=== PATIENT | male | born 1940 | race Hispanic/Latino ===

== ENCOUNTER 2016-10-21 19:23 | Observation (INO) | payer MEDICARE, BC ==
[2016-10-21 19:24] VITALS: BMI 19.5
[2016-10-21] MEDS ORDERED: Glucagon Recombinant 1 mg Inj IM STA (19:35)
[2016-10-21] MEDS ORDERED: Glucagon Recombinant 1 mg Inj ONE (19:35)
[2016-10-21 20:51] LABS: BASO # 0.1 K/uL (0.0-0.2); BASO % 0.7 % (0.0-2.0); EOS # 0.1 K/uL (0.0-0.7); EOS % 1.4 % (0.0-4.0); HEMATOCRIT 38.6 % (35.0-51.0); LYMPH # 0.5 K/uL (1.0-4.3); LYMPH % 7.2 % (20.0-40.0); MEAN CORPUSCULAR HGB CONC 34.3 g/dL (33.0-37.0); MEAN PLATELET VOLUME 8.6 fL (7.2-11.7); MONO # 0.5 K/uL (0.0-0.8); MONO % 6.2 % (0.0-10.0); NRBC % 0.1 % (0.0-2.0); PLATELET COUNT 307 K/uL (130-400); RED CELL DISTRIBUTION WIDTH 14.3 % (11.5-14.5); WHITE BLOOD COUNT 7.6 K/uL (4.8-10.8)
[2016-10-21 21:02] LABS: CHLORIDE 100 mmol/L (98-107)
[2016-10-21 21:03] LABS: POTASSIUM 2.9 mmol/L (3.6-5.2); SODIUM 139 mmol/L (132-148)
[2016-10-21 21:05] LABS: ALB/GLOB RATIO 1.3 (1.0-2.1); ALKALINE PHOSPHATASE 84 U/L (38-126); ALT/SGPT 26 U/L (21-72); AST/SGOT 57 U/L (17-59); BILIRUBIN,TOTAL 0.6 mg/dL (0.2-1.3); BLOOD UREA NITROGEN 20 mg/dL (9-20); CARBON DIOXIDE 25 mmol/L (22-30); GFR AFRICAN-AMERICAN > 60; TOTAL PROTEIN 7.4 g/dL (6.3-8.3)
[2016-10-21 21:06] LABS: CALCIUM 9.3 mg/dl (8.6-10.4); GLUCOSE,RANDOM 121 mg/dL (75-110)
--- NOTE | 2016-10-21 21:20 | C.PDOC ---
History Of Present Illness Patient presents to the ER after taking insulin without checking blood sugar or eating. Patient was found diaphoretic and with an accucheck of 48. Patient was given 16oz of juice and on arrival to the ER still had an accucheck <69; he was given 1ml of glucagon on arrival. Denies fever, chill, nausea or vomiting. Time Seen by Provider: 10/21/16 21:19 Chief Complaint (Nursing): Altered Mental Status History Per: Patient History/Exam Limitations: None Onset/Duration Of Symptoms: Hrs Onset Of Symptoms: Cannot Confirm Onset Current Symptoms Are (Timing): Still Present Usual Baseline: Unknown Exacerbating Factor(s): Diabetic Use Of Anticoag/Antiplatelets: Unknown Speech Is: Normal Severity: None Pain Scale Rating Of: 0 Recent travel outside of the [place]: No Associated Symptoms: Sweating. denies: Fever, Chills, Vomiting, Other (Nausea) Past Medical History Reviewed: Historical Data, Nursing Documentation, Vital Signs Vital Signs: Last Vital Signs Temp 97.4 F L 10/21/16 21:54 Pulse 62 10/22/16 01:15 Resp 16 10/22/16 01:15 BP 166/82 H 10/22/16 01:15 Pulse Ox 96 10/22/16 01:15 - Medical History PMH: HTN - [facility] Procedures CLOSED ENDOSCOPIC BIOPSY OF LARGE INTESTINE (01/30/12) COLONOSCOPY (05/30/97) ENDOSC POLYPECTOMY OF LG INTEST (01/08/07) Family History: States: No Known Family Hx - Social History Hx Alcohol Use: Yes Hx Substance Use: No Review Of Systems Constitutional: Positive for: Sweats. Negative for: Fever, Chills Gastrointestinal: Negative for: Nausea, Vomiting Physical Exam - Physical Exam Appears: Non-toxic, Other (AAOx3) Skin: Warm, Dry Oral Mucosa: Moist Chest: Symmetrical, No Tenderness Cardiovascular: Rhythm Regular, No Murmur Respiratory: No Rales, No Rhonchi, No Wheezing Gastrointestinal/Abdominal: Soft, No Tenderness Neurological/Psych: Oriented x3 ED Course And Treatment - Laboratory Results Result Diagrams: 10/21/16 20:37 10/21/16 20:37 ECG: Interpreted By Me, Viewed By Me ECG Rhythm: Sinus Bradycardia (48), Nonspecific Changes O2 Sat by Pulse Oximetry: 99 (Room air) Pulse Ox Interpretation: Normal Progress Note: EKG, blood work and urinalysis ordered. Glucagon and potassium administered. Reevaluation Time: 05:17 Reassessment Condition: Improved ED OBSERVATION Discharge: Yes Date of observation admission: 10/21/16 Time of observation admission: 23:51 - Observation admission statement Patient is being placed in observation because:: hypoglycemia - Goals of Observation Goals of observation are:: normoglycemia - Progress Note Progress Note: 10/21/16 23:51 vitals stable, no complaints Disposition Counseled Patient/Family Regarding: Studies Performed, Diagnosis, Need For Followup - Disposition Disposition: HOME/ ROUTINE Disposition Time: 21:20 Condition: FAIR - Clinical Impression Clinical Impression: Hypoglycemia - Scribe Statement The provider has reviewed the documentation as recorded by the Scribleoncio Koch All medical record entries made by the Mohanibleoncio were at my direction and personally dictated by me. I have reviewed the chart and agree that the record accurately reflects my personal performance of the history, physical exam, medical decision making, and the department course for this patient. I have also personally directed, reviewed, and agree with the discharge instructions and disposition.
[2016-10-21 21:44] LABS: EOSINOPHIL 1 % (0-4); NEUTROPHIL 87 % (50-75); TOTAL CELLS COUNTED 100
[2016-10-22 01:15] VITALS: RESP 16
[2016-10-22 05:29] VITALS: BP 159/78; PULSE 66; TEMP 98.1; O2SAT 98
--- NOTE | 2016-10-22 09:49 | CARD ---
APPROVED REPORT EKG Measurement Heart [id number] <Conclusion> Sinus bradycardia Poor R wave progression Borderlinel ECG
== END 2016-10-22 05:18 | disposition home or self-care (01) ==
LOC: C.ER 19:23 → C.9E 23:12 → C.9OBSV 23:12
PROVIDERS: ADMIT Emergency Medicine; ATTEND Emergency Medicine
DX: E11.649 Type 2 diabetes mellitus with hypoglycemia without coma (principal); Z79.4 Long term (current) use of insulin; I10 Essential (primary) hypertension
CPT/HCPCS: 80053; 82948; 85025; 85610; 85730; 93005; 96372; G0378; J1610; J3480

== ENCOUNTER 2017-06-30 12:25 | Observation (INO) | payer MEDICARE, BC ==
[2017-06-30 12:26] VITALS: BMI 19.5
[2017-06-30 13:10] LABS: VENOUS BLOOD GAS BASE EXCESS 5.7 mmol/L (0.0-2.0); VENOUS BLOOD GAS PCO2 64 mmHg (40-60); VENOUS BLOOD GAS PO2 11 mm/Hg (30-55); VENOUS BLOOD PH 7.33 (7.32-7.43)
[2017-06-30] MEDS ORDERED: Sodium Chloride 0.9% 500 ML IV ONE ×2 (13:10→15:00)
[2017-06-30] MEDS ORDERED: Dextrose 50% SYRINGE Inj (50 ml) IVP STA (13:22)
[2017-06-30 13:24] LABS: BASO # 0.1 K/uL (0.0-0.2); EOS % 0.2 % (0.0-4.0); HEMOGLOBIN 11.8 g/dL (12.0-18.0); LYMPH # 0.1 K/uL (1.0-4.3); LYMPH % 0.6 % (20.0-40.0); MEAN CELL VOLUME 100.9 fL (80.0-94.0); MEAN CORPUSCULAR HEMOGLOBIN 34.3 pg (27.0-31.0); MEAN PLATELET VOLUME 8.9 fL (7.2-11.7); MONO # 0.5 K/uL (0.0-0.8); MONO % 3.5 % (0.0-10.0); NEUT # 13.6 K/uL (1.8-7.0); NEUT % 94.7 % (50.0-75.0); PLATELET COUNT 328 K/uL (130-400); RBC 3.44 Mil/uL (4.40-5.90); RED CELL DISTRIBUTION WIDTH 14.7 % (11.5-14.5); WHITE BLOOD COUNT 14.4 K/uL (4.8-10.8)
[2017-06-30] MEDS ORDERED: Dextrose 50% VIAL Inj (50 ml) IV ONE (13:27)
[2017-06-30 13:33] LABS: PROTHROMBIN TIME 11.7 SECONDS (9.7-12.2)
[2017-06-30 13:47] LABS: ALB/GLOB RATIO 0.8 (1.0-2.1); ALBUMIN 3.1 g/dL (3.5-5.0); ALT/SGPT 16 U/L (21-72); AST/SGOT 18 U/L (17-59); BLOOD UREA NITROGEN 18 mg/dL (9-20); CALCIUM 9.1 mg/dl (8.6-10.4); GFR AFRICAN-AMERICAN > 60; GFR NON-AFRICAN AMERICAN > 60
[2017-06-30 13:57] LABS: BANDS 16 % (0-2); MONOCYTE 3 % (0-10); NEUTROPHIL 81 % (50-75); PLATELET ESTIMATE NORMAL (NORMAL); TOTAL CELLS COUNTED 100
--- NOTE | 2017-06-30 14:24 | RAD ---
Chest, one view Indication: Altered mental status Comparison: None available. Findings: Examination limited by habitus and hypoinflation. Cardiomegaly. Ectatic aorta. Moderate pulmonary venous and central vascular congestion. 3.5 x 3.8 cm more focal opacity in the right upper lobe may be related to consolidation however follow-up to assess for complete resolution and exclude possibility of underlying neoplasm. Layering left pleural effusion. No definite pneumothorax. Please note that chest x-ray has limited sensitivity for the detection of pulmonary masses. Degenerative changes of the spine. Impression: Moderate pulmonary venous and central vascular congestion. 3.5 x 3.8 cm more focal opacity in the right upper lobe may be related to consolidation however follow-up to assess for complete resolution and exclude possibility of underlying neoplasm. Layering left pleural effusion. Cardiomegaly. Ectatic aorta.
[2017-06-30] MEDS ORDERED: Dextrose 5%/0.9% NS 1,000 ML IV ONE ×3 (15:01→18:41)
--- NOTE | 2017-06-30 15:08 | C.PDOC ---
History Of Present Illness Patient BIBA for evaluation of altered mental status this morning. As per daughter, patient's insulin regimen was recently adjusted on . Patient got Lantus 14units last night, then humalog this morning (3units, then another 3 units). Blood sugar on EMS arrival was 38, D50 amp given in the field. Patient has h/o lung CA on radiation, prior laryngeal CA, hypothyroidism, HTN, pneumonia. Patient recently admitted at [facility] in May 2017 for pneumonia. Time Seen by Provider: 06/30/17 12:30 Chief Complaint (Nursing): Altered Mental Status History Per: EMS, Family History/Exam Limitations: clinical condition Onset/Duration Of Symptoms: Hrs Current Symptoms Are (Timing): Still Present Severity: Moderate Past Medical History Reviewed: Historical Data, Nursing Documentation, Vital Signs Vital Signs: Last Vital Signs Temp 98.4 F 06/30/17 14:45 Pulse 105 H 06/30/17 14:45 Resp 21 06/30/17 14:45 BP 96/58 L 06/30/17 14:45 Pulse Ox 96 06/30/17 15:11 - Medical History PMH: HTN, Hypothyroidism, Pneumonia (''May 2017 at [facility]'') Surgical History: Denies: Pacemaker - [facility] Procedures CLOSED ENDOSCOPIC BIOPSY OF LARGE INTESTINE (01/30/12) COLONOSCOPY (05/30/97) ENDOSC POLYPECTOMY OF LG INTEST (01/08/07) Family History: States: No Known Family Hx - Social History Hx Alcohol Use: No Hx Substance Use: No - Immunization History Hx Tetanus Toxoid Vaccination: No Hx Influenza Vaccination: No Hx Pneumococcal Vaccination: No Review Of Systems Review Of Systems: ROS cannot be obtained secondary to pt's inabilty to answer questions. Physical Exam - Physical Exam Appears: Non-toxic, Chronically Ill Skin: Warm, Dry Eye(s): bilateral: Normal Inspection Oral Mucosa: Dry, Other (upper dentures present) Tongue: Fissured (dry) Cardiovascular: Rhythm Regular (tachycardic ) Respiratory: Normal Breath Sounds, No Rales, Rhonchi, No Wheezing Gastrointestinal/Abdominal: Normal Exam, Bowel Sounds, Soft, No Tenderness Extremity: Normal ROM, No Pedal Edema, No Calf Tenderness Extremity: Bilateral: Atraumatic, Normal Color And Temperature, Normal ROM Neurological/Psych: Other (drowsy appearing, confused) ED Course And Treatment - Laboratory Results Result Diagrams: 06/30/17 13:14 06/30/17 13:14 O2 Sat by Pulse Oximetry: 96 (RA) Pulse Ox Interpretation: Normal - Other Rad CXR X-Ray: Viewed By Me, Read By Radiologist Interpretation: Accession No. : [id number]. Patient Name / ID : LORENZO HAWTHORNE / [id number]. Exam Date : 06/30/2017 12:55:09 ( Approved ). Study Comment : Sex / Age : M / 76Y. Creator : Alexandra Garcia MD. Dictator : Alexandra Garcia MD. Sales Representative [employer] : Knot Borer : Alexandra Garcia MD. Approver2 : Report Date : 06/30/2017 14:22:27. My Comment : . Chest, one view. Indication: Altered mental status. Comparison: None available. Findings : Examination limited by habitus and hypoinflation. Cardiomegaly. Ectatic aorta. Moderate pulmonary venous and central vascular congestion. 3.5 x 3.8 cm more focal opacity in the right upper lobe may be related to consolidation however follow-up to assess for complete resolution and exclude possibility of underlying neoplasm. Layering left pleural effusion. No definite pneumothorax. Please note that chest x-ray has limited sensitivity for the detection of pulmonary masses. Degenerative changes of the spine. Impression: Moderate pulmonary venous and central vascular congestion. 3.5 x 3.8 cm more focal opacity in the right upper lobe may be related to consolidation however follow- up to assess for complete resolution and exclude possibility of underlying neoplasm. Layering left pleural effusion. Cardiomegaly. Ectatic aorta. Progress Note: Blood work, UA, CXR, influenza swab, EKG ordered and reviewed. Patient given D50 amp, IV NS bolus. Disposition - Disposition Forms: [employer] (Tai[place]ese)
[2017-06-30] MEDS ORDERED: Vancomycin 1 GM 1 GM/250 ML BAG IV STA (16:54)
[2017-06-30] MEDS ORDERED: Cefepime IV 1 gm in Dextrose 1 GM/50 ML BAG IVPB STA (16:55)
[2017-06-30] MEDS ORDERED: Moxifloxacin IV 400mg/250ml NS 400 MG/250 ML BAG IV STA (16:55)
[2017-06-30] MEDS ORDERED: Vancomycin 1 gm/NS 200 ml 1 GM/200 ML BAG IVPB STA (17:40)
[2017-06-30 17:56] LABS: URINE BACTERIA OCC (<OCC); URINE BILIRUBIN NEGATIVE (NEGATIVE); URINE BLOOD 1+ (NEGATIVE); URINE CLARITY Hazy (Clear); URINE COLOR Yellow (YELLOW); URINE GLUCOSE (UA) NORMAL (Normal); URINE HYALINE CAST 0-2 /lpf (0-2); URINE LEUKOCYTE ESTERASE TRACE Leu/uL (Negative); URINE NITRATE NEGATIVE (NEGATIVE); URINE PROTEIN 1+ mg/dL (NEGATIVE)
[2017-06-30] MEDS ORDERED: Moxifloxacin IV 400mg/250ml NS 400 MG/250 ML BAG IVPB ONE (21:31)
[2017-06-30] MEDS ORDERED: Levothyroxine 100 mcg (0.1 mg) Inj IVP STA (23:49)
[2017-07-01 01:22] LABS: ALB/GLOB RATIO 0.8 (1.0-2.1); ALBUMIN 2.2 g/dL (3.5-5.0); ALT/SGPT 16 U/L (21-72); AST/SGOT 17 U/L (17-59); BLOOD UREA NITROGEN 16 mg/dL (9-20); CALCIUM 7.6 mg/dl (8.6-10.4); GFR AFRICAN-AMERICAN > 60; GFR NON-AFRICAN AMERICAN > 60
[2017-07-01 05:09] LABS: HEMOGLOBIN 9.5 g/dL (12.0-18.0); MEAN CELL VOLUME 101.8 fL (80.0-94.0); MEAN CORPUSCULAR HEMOGLOBIN 34.3 pg (27.0-31.0); MEAN CORPUSCULAR HGB CONC 33.7 g/dL (33.0-37.0); MEAN PLATELET VOLUME 8.4 fL (7.2-11.7); RBC 2.78 Mil/uL (4.40-5.90); RED CELL DISTRIBUTION WIDTH 14.9 % (11.5-14.5); WHITE BLOOD COUNT 11.1 K/uL (4.8-10.8)
[2017-07-01 05:32] LABS: T4 9.77 ug/dL (5.5-11.0)
[2017-07-01] MEDS ORDERED: Levothyroxine 175 MCG TAB PO SCH (06:30)
[2017-07-01] MEDS: (Novolog) Insulin Aspart, Recombinant 100 u/ml 10 ml vial SC SCH ×4 (07:50→21:20)
[2017-07-01] MEDS ORDERED: Levothyroxine 200 mcg (0.2 mg) Inj IVP SCH (10:00)
[2017-07-01] MEDS: Magnesium Oxide 400 mg Tab UD PO SCH ×2 (10:29→17:57)
--- NOTE | 2017-07-01 10:34 | CON ---
DATE: ENDOCRINOLOGY CONSULT HISTORY OF PRESENT ILLNESS: This is 76-year-old male with known history of type 2 insulin-requiring diabetes, presenting here with altered mental status and supervening symptomatic hypoglycemia and is now being referred for endocrine evaluation and management. His insulin regimen was recently adjusted, and he is currently on Humalog given as 3 units before meals and Lantus 14 units at bedtime as noted. His blood glucose levels is done by the EMS. His blood glucose readings done by the EMT personnel was 38 mg/dL, received D50 bolus injections as noted. PAST MEDICAL HISTORY: As mentioned above, history of type 2 insulin requiring diabetes on the aforementioned dose regimen, history of hypertension and dyslipidemia, history of hypothyroidism, currently on Levothyroxine at 175 mcg daily, history of lung carcinoma with radiation therapy as given. He also has a prior history of laryngeal carcinoma with surgical resection undertaken, history of recent pneumonia, and admission to the [facility] a month ago. FAMILY HISTORY: Positive for hypertension and heart disease. SOCIAL HISTORY: The patient has supportive family. No known substance use. REVIEW OF SYSTEMS: Not possible at this time because of altered mental status but as per the historical data, was found by his daughter to be increasingly confused and disoriented with generalized body weakness and increasing hypersomnolence and lethargy. No chest pains, palpitations, or PNDs. His oral intake has been variable with nausea and dyspepsia in suboptimal mid portions as noted. No recent alteration to bowel or urinary patterns. PHYSICAL EXAMINATION: GENERAL: This is an average built male, in no apparent distress. VITAL SIGNS: Blood pressure of 140/80, pulse of 100 beats per minute and regular, temperature 98, respirations 20, height is 5 feet 10 inches, weight is 150 pounds. HEENT: Head is normocephalic. Eyes anicteric with pink conjunctivae. Funduscopy not possible at this time. Ears, nose, and throat, otherwise normal. NECK: Supple. Thyroid gland shows nodular thyromegaly which is permanent, tender. No over nodules or cervical adenopathy noted. HEART: Adynamic precordium. S1, S2 is rapid and regular. LUNGS: Clear to auscultation. ABDOMEN: Flat, soft with positive bowel sounds. EXTREMITIES: No peripheral edema. Pulses are +2 bilaterally. LABORATORY DATA: His chemistries showed a BUN of 18, sodium 138, potassium 3.6, chloride 96, CO2 of 32, glucose 47, and creatinine 0.9. His TSH is 50.60. ASSESSMENT: This is 76-year-old male with uncontrolled and decompensated type 2 insulin-requiring diabetes, presenting here with symptomatic hypoglycemia and associated neuroglycopenic and hyperattenuated manifestations reversed by D50 bolus injections and dextrose infusion as given at this time. He also has overt hypothyroidism both historically, clinically, and biochemically, most likely related to underlying autoimmune thyroiditis with a subtherapeutic Levothyroxine regimen as given. PLAN OF MANAGEMENT: As discussed with the staff, we will continue the dextrose infusion as ordered and glycemic levels are fluctuations overnight and determine the need to start him on either a basal and bolus insulin regimen and/or just basal insulin with oral hypoglycemic drug therapy as given. We will obtain a hemoglobin A1c to confirm her prior glycemic control and baseline thyroid function studies and repeat thyroid studies will be obtained at this time. We will also give him parenteral Levothyroxine at 100 mcg with IV push once daily as ordered. We will obtain serial thyroid studies and titrate his dose regimen accordingly. We will obtain serial chemistries and supplement accordingly as needed. We will follow up with you. Scarlett Lobato MD
[2017-07-01] MEDS: Moxifloxacin IV 400mg/250ml NS 400 MG/250 ML BAG IVPB SCH (11:39)
[2017-07-01] MEDS: Enoxaparin 40 mg Syringe SC SCH (11:39)
--- NOTE | 2017-07-01 12:30 | CARD ---
APPROVED REPORT EKG Measurement Heart [id number] <Conclusion> Sinus tachycardia Anterior infarct, age undetermined Abnormal ECG
--- NOTE | 2017-07-01 18:07 | HP ---
HISTORY OF PRESENT ILLNESS: I saw him early this morning. He was admitted last night to [facility]. I saw him in the emergency room of [facility]. He was just out of [facility]. Apparently at home, there was a problem with his insulin and was given 2 shots of his insulin, brought in by ambulance. EMS gave D50 a few times in the bus trying to get him to the ER and get him more awake. He is doing better now with his blood sugars. He is still in the ER, a little bit in and out of it. He is a 76-year-old man, who came to the emergency room with low blood sugars secondary to 2 doses of insulin being given by family by accident. PAST MEDICAL HISTORY: Lung cancer, on radiation, prior laryngeal CA, hypothyroidism, hypertension, pneumonia, diabetes, was out of [facility] a few weeks ago. PAST SURGICAL HISTORY: He has had endoscopies of large intestine, colonoscopies, polypectomies of intestines. FAMILY HISTORY: No family history. SOCIAL HISTORY: No alcohol. No drugs. He quit smoking. REVIEW OF SYSTEMS: He has no acute vision or hearing changes. A little short of breath. No chest pain or abdominal pain. Lightheadedness went away. PHYSICAL EXAMINATION: VITAL SIGNS: He has 98.1 temperature, 57 pulse, 119/54 blood pressure, 20 respiratory rate, and 95% O2 saturation. HEENT: Head is atraumatic, normocephalic. He is chronically ill, but nontoxic. Eyes are clear. Throat is dry. SKIN: Warm and dry, poor turgor. No apparent rashes or ulcers. NECK: Supple. Thyroid is midline. No palpable appreciable lymphadenopathy. HEART: Regular rate, tachy but 98 to 100. LUNGS: Decreased breath sounds bilaterally, but mostly clear. ABDOMEN: Soft and nontender. Positive bowel sounds. No guarding. No rebound. No CVA tenderness. EXTREMITIES: No edema. NEUROLOGIC: He is more alert. He was very confused earlier, understands, very alert at this time. LABORATORY DATA: He had multiple tests done. He had a chest x-ray, which showed moderate pulmonary edema, substantial vascular congestion 3.5 x 2.8 cm, more focal opacity in the right upper lobe, may be related to consolidation. We will follow up to assess for complete resolution and exclude possibility of underlying neoplasm, which we do know he has, left pleural effusion, cardiomegaly. He has a 134 sodium, potassium 3.9, BUN 16, creatinine 0.9, , sugars 194 and was 205, so he is doing well, calcium is 7.6, AST is 17, ALT is 16, alk phos 69, total protein 5.2. TSH is 25.2, it was 50. He is back on his Synthroid. His white count is 11.1; when he came in it was 14.4. His hemoglobin is 9.5, hematocrit 28.3, platelets 261. ASSESSMENT AND PLAN: He is currently on Levothyroxine, Lovenox, magnesium oxide, insulin coverage. The Avelox fell off,we will put him back on the Avelox. He has multiple consults pending. There are consults with Endocrinology, Infectious Disease, and Pulmonary regarding the diet. We will get Physical Therapy get him out of his chair, give him some oxygen and he had a low blood sugar, lung cancer history, in and out of it mentally, elevated white count of 14,000, elevated TSH of 50, down to 25. We will continue aggressive treatment and care. Justo Price DO MTDCarmen
[2017-07-01] MEDS ORDERED: (Lantus) Insulin Glargine, Recombinant SC SCH (22:00)
[2017-07-02 01:20] VITALS: RESP 20
--- NOTE | 2017-07-02 02:45 | PN ---
DATE: ENDOCRINOLOGY FOLLOWUP NOTE LOCATION: In the room 653. SUBJECTIVE: This is a 76-year-old male admitted with symptomatic hypoglycemia and now being followed closely for metabolic management. His glycemic levels are fluctuating but improved, and the glucose values are ranging from 161 to 194 mg/dL. His repeat chemistry showed a BUN of 16, sodium 134, potassium 3.9, chloride 102, CO2 of 27, glucose 205, and creatinine 0.9. His hemoglobin A1c is 8.1% which is elevated and indicative of suboptimal metabolic controlled with diabetic condition. The repeat thyroid studies showed a T4 of 9.7 with a TSH of 25.20. The initial TSH was actually 50.60. ASSESSMENT: This is a 76-year-old male with symptomatic hypoglycemia related to a suboptimal meal portion on maintaining the same insulin dose regimen was given with supervening hyperadrenergic and neuroglycopenic manifestations related to symptomatic hypoglycemia. He also is clinically and biochemically hypothyroid related to underlying autoimmune thyroiditis with overt hypothyroidism as noted. PLAN OF MANAGEMENT: We will modify his current insulin dose regimen to obviate hypoglycemia and detailed orders have been given for NovoLog coverage scale only to be given above 300 mg/dL. We will start him on Lantus given as 8 units subcu at bedtime daily as given. We will hold off the NovoLog and observe his meal portions and oral intake accordingly. We will also continue the levothyroxine, given as 100 mcg IV push once daily as ordered. We will obtain serum chemistry supplements accordingly as needed. We will also obtain serum thyroid studies and titrate the dose regimen accordingly and also may switch him over to oral levothyroxine the next day or so as indicated. With overt hypothyroidism, this expected edema of the gastric mucosa which would impair oral obstruction of levothyroxine as noted. That is why, we prefer to give initially on admission, parenteral levothyroxine medications as given. We will follow with you. Scarlett Lobato MD
[2017-07-02] MEDS ORDERED: SODIUM CHLORIDE 0.9% IVP SCH (06:30)
[2017-07-02] MEDS ORDERED: LEVOTHYROXINE IVP SCH (06:30)
[2017-07-02] MEDS: (Novolog) Insulin Aspart, Recombinant 100 u/ml 10 ml vial SC SCH ×2 (07:47→12:25)
[2017-07-02 08:14] VITALS: BP 145/74; PULSE 69; TEMP 97.1; O2SAT 94
[2017-07-02] MEDS: Moxifloxacin IV 400mg/250ml NS 400 MG/250 ML BAG IVPB SCH (09:48)
[2017-07-02] MEDS: Magnesium Oxide 400 mg Tab UD PO SCH (09:50)
[2017-07-02] MEDS: Enoxaparin 40 mg Syringe SC SCH (09:50)
[2017-07-02] MEDS ORDERED: Levothyroxine 100 mcg (0.1 mg) Inj IVP SCH (10:00)
[2017-07-02 11:02] LABS: BASO % 0.3 % (0.0-2.0); EOS # 0.1 K/uL (0.0-0.7); EOS % 1.1 % (0.0-4.0); HEMOGLOBIN 10.3 g/dL (12.0-18.0); LYMPH # 0.1 K/uL (1.0-4.3); LYMPH % 1.3 % (20.0-40.0); MEAN CELL VOLUME 100.4 fL (80.0-94.0); MEAN CORPUSCULAR HEMOGLOBIN 34.9 pg (27.0-31.0); MEAN CORPUSCULAR HGB CONC 34.7 g/dL (33.0-37.0); MEAN PLATELET VOLUME 8.7 fL (7.2-11.7); MONO # 0.5 K/uL (0.0-0.8); MONO % 4.8 % (0.0-10.0); NEUT # 10.2 K/uL (1.8-7.0); NEUT % 92.5 % (50.0-75.0); PLATELET COUNT 288 K/uL (130-400); RBC 2.95 Mil/uL (4.40-5.90); RED CELL DISTRIBUTION WIDTH 14.9 % (11.5-14.5)
[2017-07-02 11:20] LABS: ALB/GLOB RATIO 0.8 (1.0-2.1); ALBUMIN 2.6 g/dL (3.5-5.0); ALT/SGPT 14 U/L (21-72); AST/SGOT 16 U/L (17-59); BLOOD UREA NITROGEN 16 mg/dL (9-20); CALCIUM 8.3 mg/dl (8.6-10.4); GFR AFRICAN-AMERICAN > 60; GFR NON-AFRICAN AMERICAN > 60
[2017-07-02 11:31] LABS: BANDS 8 % (0-2); LYMPHOCYTE 1 % (20-40); MONOCYTE 4 % (0-10); NEUTROPHIL 87 % (50-75); PLATELET ESTIMATE NORMAL (NORMAL); TOTAL CELLS COUNTED 100
--- NOTE | 2017-07-02 21:53 | PN ---
DATE: 07/02/2017 ENDOCRINOLOGY FOLLOWUP NOTE LOCATION: Room 653. SUBJECTIVE: This is a 76-year-old male with recent uncontrolled type 2 insulin-requiring diabetes, now being followed closely for metabolic management. His glycemic levels are fluctuating, but much improved at this time, and the latest glucose levels have ranged from 163 to 174 mg/dL. His latest chemistry showed a BUN of 16, sodium 133, potassium 3.5, chloride 99, CO2 of 27, glucose 195, and creatinine 0.9. His glucose values have ranged from 163 to 174 mg/dL as noted. His latest thyroid studies showed a T4 of 9.77 with a TSH of 25.20 and a free T4 of 4.8. ASSESSMENT AND PLAN: At this time, we will continue the same basal insulin with Lantus 8 units subcutaneously at bedtime daily is given. We will also recommend levothyroxine given as 125 mcg p.o. once daily as ordered. We will titrate incrementally as indicated to optimize metabolic control. He will follow with Dr. Price, his primary doctor for outpatient medical and endocrine management. Scarlett Lobato MD
--- NOTE | 2017-07-03 04:58 | DS ---
HISTORY OF PRESENT ILLNESS: I saw Mr. Tapia this morning at [facility]. He is doing well, he is sitting up, he is eating a little bit. He is feeling better, more alert, comfortable. No chest pain. No shortness of breath PHYSICAL EXAMINATION: VITAL SIGNS: He has 98.2 temp, 61 pulse, 136/64 blood pressure, 20 respiratory rate, 96% O2 saturation on room air. HEENT: Head is atraumatic, normocephalic. He is more alert, awake, and talking to me. HEART: Regular rate. LUNGS: Decreased breath sounds bilaterally. He does have lung cancer. ABDOMEN: Soft. EXTREMITIES: No edema. He is currently on Avelox 400, Lantus 8, levothyroxine IV and also will be switched to 100 daily, and magnesium oxide. He has a 11.1 white count, down; 9.5 hemoglobin; 28.3 hematocrit with 261 platelets. His last blood sugar was 163, it was 265 and 271. I will increase his Lantus from 8 to 10 at night time. He has 134 sodium, potassium 3.9, BUN 16, creatinine 0.9, GFR is greater than 60, AST 17, ALT 16, alk phos 69. I discussed this with the daughter who want to take him home. He is being seen by Endocrinology, Physical Therapy, get home health services. He is eating well. He will be discharged home today on Avelox 400 daily for 7 more days; Lantus will go from 8 units to 10 units because his blood sugar is a little bit high, so 10 units at night time; levothyroxine 100 mcg daily; and magnesium oxide 400 daily. I will see him in the office on Friday, before the weekend. Justo Price DO MTDD
== END 2017-07-02 13:02 | disposition home or self-care (01) ==
LOC: C.ER 12:25 → C.9E 17:27 → INTOOBSV 17:27 → C.6T 07-01 11:16
PROVIDERS: ADMIT Family Medicine; ATTEND Family Medicine
DX: E11.649 Type 2 diabetes mellitus with hypoglycemia without coma (principal); E06.3 Autoimmune thyroiditis; E11.65 Type 2 diabetes mellitus with hyperglycemia; Z85.118 Personal history of other malignant neoplasm of bronchus and lung; Z79.4 Long term (current) use of insulin; I10 Essential (primary) hypertension; E78.5 Hyperlipidemia, unspecified; Z79.899 Other long term (current) drug therapy; Z87.01 Personal history of pneumonia (recurrent); Z85.21 Personal history of malignant neoplasm of larynx; Z87.891 Personal history of nicotine dependence
CPT/HCPCS: 36415; 71045; 80053; 81001; 82550; 82553; 82803; 82948; 83036; 84439; 84443; 84484; 85025; 85027; 85610; 85730; 86376; 87040; 87086; 87804; 93005; 96361; 96365; 96372; 96375; 96376; 97116; 97162; 99285; G0378; G8978; G8979; J0692; J1650; J2280; J3370; J7040; J7042